=== PATIENT | male | born 1980 | race Caucasian/White ===

== ENCOUNTER 2017-06-28 16:42 | Emergency (ER) | payer OTHER, SELFPAY ==
[2017-06-28 16:43] VITALS: BP 160/129; PULSE 91; RESP 18; TEMP 36.8; O2SAT 95; BMI 34.9
--- NOTE | 2017-06-28 17:34 | ED.VISSUMM ---
- ER Visit Summary Date of Service: 06/28/17 Chief Complaint: Right chest pain while bench pressing 225 pounds. History of Present Illness: The patient is a 36 M who was bench pressing and experienced severe tearing right-sided chest pain associated with nausea and vomiting. He states the pain has subsided markedly. He believes he tore his pectoralis muscle. He has no other complaints. Physical Examination: No signs are marked for an elevated blood pressure of 160/129. He has a defect noted superior lateral portion of the right pectoralis muscle. There is fullness of the chest inferior. Heart is regular without murmur, gallop or rub. S1 and S2 are normal. Lungs are clear to auscultation with good movement of air bilaterally. Axillary, median, radial and ulnar function intact. Test Results: No tests are indicated or needed Emergency Department Course and Treatment: Patient was told he has a tear of his pectoralis muscle. He informed me that his staff trainer recommended Dr. Zander Lucero for follow-up. Treatment Plan: Ice 2030 minutes a time 6 day times a day and either ibuprofen or Aleve for his discomfort. He declined any pain medicine or anything stronger. Disposition: Discharge to home with orthopedic follow-up to discuss treatment options Impression: Right pectoralis tear, insertion This note was generated with [employer] dictation software. It may contain incorrect words, spelling, and punctuation that were not noted in review of the chart prior to signing ED Disposition - Plan for ED Patient: Disposition: Home or Assisted Living Chief Complaint: Chest Other Instructions: ED Strain Chest Wall Referrals: NOT,DEFINED [NON-STAFF] - Zander Lucero DO [STAFF PHYSICIAN] - 5-7 Days Additional Instructions: Apply ice 6-8 times a day for 2030 minutes for the next 3-5 days. Take either 4 Advil every 8 hours or 2 Aleve every 12 hours for discomfort.
--- NOTE | 2017-06-28 17:39 | ED.DCSUM_ITS ---
- ER Visit Summary Date of Service: 06/28/17 Chief Complaint: Right chest pain while bench pressing 225 pounds. History of Present Illness: The patient is a 36 M who was bench pressing and experienced severe tearing right-sided chest pain associated with nausea and vomiting. He states the pain has subsided markedly. He believes he tore his pectoralis muscle. He has no other complaints. Physical Examination: No signs are marked for an elevated blood pressure of 160/ 129. He has a defect noted superior lateral portion of the right pectoralis muscle. There is fullness of the chest inferior. Heart is regular without murmur, gallop or rub. S1 and S2 are normal. Lungs are clear to auscultation with good movement of air bilaterally. Axillary, median, radial and ulnar function intact. Test Results: No tests are indicated or needed Emergency Department Course and Treatment: Patient was told he has a tear of his pectoralis muscle. He informed me that his rehab trainer recommended Dr. Zander Lucero for follow-up. Treatment Plan: Ice 2030 minutes a time 6 day times a day and either ibuprofen or Aleve for his discomfort. He declined any pain medicine or anything stronger. Disposition: Discharge to home with orthopedic follow-up to discuss treatment options Impression: Right pectoralis tear, insertion This note was generated with [employer] dictation software. It may contain incorrect words, spelling, and punctuation that were not noted in review of the chart prior to signing ED Disposition - Plan for ED Patient: Disposition: Home or Assisted Living Chief Complaint: Chest Other Instructions: ED Strain Chest Wall Referrals: NOT,DEFINED [NON-STAFF] - Zander Lucero DO [STAFF PHYSICIAN] - 5-7 Days Additional Instructions: Apply ice 6-8 times a day for 2030 minutes for the next 3-5 days. Take either 4 Advil every 8 hours or 2 Aleve every 12 hours for discomfort.
== END 2017-06-28 17:47 | disposition home or self-care (01) ==
PROVIDERS: Emergency Provider Emergency Medicine
DX: S29.011A Strain of muscle and tendon of front wall of thorax, initial encounter (principal); X58.XXXA Exposure to other specified factors, initial encounter; Y93.B3 Activity, free weights; Y92.89 Other specified places as the place of occurrence of the external cause; Y99.8 Other external cause status
CPT/HCPCS: 99283

== ENCOUNTER → 2017-06-30 08:13 | Outpatient (CLI) | payer OTHER, SELFPAY ==
--- NOTE | 2017-06-30 08:15 | RAD_ITS ---
STUDY: X-RAY CHEST REASON FOR EXAM: Male, 36 years old. Chest pain following injury. TECHNIQUE: Single AP portable view of the chest. COMPARISON: Comparison is made with prior study dated June 08, 2016. FINDINGS: The lungs are clear and expanded. There is no demonstrated pleural abnormality. Normal size heart. Normal mediastinum and odette. Normal visualized pulmonary arteries. Normal visualized aortic arch and descending thoracic aorta. Normal visualized thoracic spine. Normal visualized ribs, clavicles, and shoulders. There is no demonstrated abnormality of the visualized soft tissue structures of the upper abdomen. RAD/Chest 1 View IMPRESSION: Normal x-ray examination of the chest. Electronically Signed: Stevan Anderson MD at 13:38 EST Tel [phone], Service support ,
== END ==
PROVIDERS: Visit Provider Orthopaedic Surgery
DX: S29.011A Strain of muscle and tendon of front wall of thorax, initial encounter (principal)
CPT/HCPCS: 71045

== ENCOUNTER → 2017-07-06 06:35 | Outpatient (CLI) | payer OTHER, SELFPAY ==
--- NOTE | 2017-07-06 07:00 | MRI_ITS ---
STUDY: MRI RIGHT SHOULDER REASON FOR EXAM: Shoulder pain, limited range of motion, swelling in right pectoralis area from lifting injury 06/28/2017. TECHNIQUE: Standardized fat and water weighted pulse sequences were obtained in all 3 orthogonal planes. COMPARISON: None. FINDINGS: There is mild supraspinatus tendinosis (T2 coronal image images 16, 17) without discrete tendon tear. Normal infraspinatus tendon. Normal subscapularis tendon. Normal teres minor tendon. Normal supraspinatus muscle. Normal infraspinatus muscle. Normal subscapularis muscle. Normal teres minor muscle. Normal glenohumeral articulation. There is mild cystic change of the greater tuberosity. Normal biceps labral complex. Normal intracapsular long biceps tendon. Normal labrum. Normal capsulo- ligamentous complex. Normal acromioclavicular articulation. There is a Type II morphology (curved), with a neutral orientation. There is no subacromial-subdeltoid bursal fluid. Normal visualized coracohumeral and coracoacromial ligaments. Normal deltoid muscle. Normal trapezius muscle. There is discontinuity of the pectoralis major tendon approximately 2.8 cm proximal to the humeral insertion (proton-density axial image 25) with fluid/hemorrhage surrounding the retracted tendon near the pectoralis major musculotendinous junction (proton-density axial images 18-23). MRI/Upper Ext Joint Only(Routine) IMPRESSION: Tear of the pectoralis major tendon. Mild supraspinatus tendinosis. Electronically Signed: Enoch Suazo MD at 8:59 EST Tel , Service support ,
== END ==
PROVIDERS: Visit Provider Orthopaedic Surgery
DX: S29.011A Strain of muscle and tendon of front wall of thorax, initial encounter (principal); X58.XXXA Exposure to other specified factors, initial encounter
CPT/HCPCS: 73221

== ENCOUNTER → 2017-07-07 06:23 | Outpatient (CLI) | payer OTHER, SELFPAY ==
--- NOTE | 2017-07-07 07:00 | MRI_ITS ---
STUDY: MR CHEST WITHOUT CONTRAST (ATTENTION RIGHT PECTORALIS MAJOR) REASON FOR EXAM: Anterior right chest swelling after lifting injury 06/28/2017. TECHNIQUE: Standardized fat and water weighted pulse sequences were obtained in all 3 orthogonal planes. COMPARISON: MRI of the right shoulder 07/06/2017. FINDINGS: There is discontinuity of the right pectoralis major tendon approximately 2.7 cm proximal to the humeral insertion (T2 axial series 9 image 10). There is fluid/hemorrhage at the musculotendinous junctions of the sternal and clavicular heads of the right pectoralis major (inversion recovery sagittal images 6-8). MRI/Chest without Contrast IMPRESSION: Tear of the right pectoralis major tendon with fluid/hemorrhage at the musculotendinous junction. Electronically Signed: Enoch Suazo MD at 9:28 EST Tel , Service support ,
== END ==
PROVIDERS: Visit Provider Orthopaedic Surgery
DX: S29.011A Strain of muscle and tendon of front wall of thorax, initial encounter (principal)
CPT/HCPCS: 71550

== ENCOUNTER 2017-07-16 05:39 | Day surgery (SDC) | payer OTHER, SELFPAY ==
[2017-07-16 06:13] VITALS: BP 137/87; PULSE 90; RESP 16; TEMP 36.4; O2SAT 97; BMI 34.9
--- NOTE | 2017-07-16 07:22 | OP.PN_ITS ---
Immediate Post-Op Note Date of Procedure: 07/16/17 Primary Surgeon/Physician: Zander Lucero DO director of financial planning: Lennie Corbett Pre-Operative Diagnosis: right acute pec tear Post-Operative Diagnosis: same as above Surgery/Procedure Performed:: right open pec repair Description of Surgical Findings:: see dictation Estimated Blood Loss: 50 Specimen's removed: none Type of Anesthesia:: General ASA Class: ASA1 Normal Healthy Patient - Admit VTE Documentation VTE Present on Admission: No VTE Mechan Device Prophylaxis: SCD's, Knee High OTILIA Hose VTE Pharm Prophylaxis ordered?: No Reason prophylaxis not ordered:: Treatment Not Indicated
[2017-07-16] MEDS: Cefazolin 2 GM in 0.9% Normal Saline 100 ML IV (07:35)
[2017-07-16] MEDS: Bupivacaine Mpf 0.5% 30 ML VIAL (09:05)
--- NOTE | 2017-07-16 09:23 | PCM.OPRPT ---
Report of Operation Date of Procedure: 07/16/17 Pre-Operative Diagnosis: right acute pec tear Post-Operative Diagnosis: same as above Surgery/Procedure Performed:: right open pec repair Description of Surgical Findings:: 36-year-old male with an acute right pectoralis major rupture. 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 Patient had an MRI that showed him to have an tear at the musculotendinous junction. It appeared that it was a complete tea of the sternal-total and clavicular heads. Patient was counseled consented for a primary repair if able versus possible augmentation with allograft if needed. Patient was met in the holding area where the right upper extremity was marked and identified by the with surgeon. Patient was taken the operating room in satisfactory condition with somewhat to place to identify patient operative procedure and limb. Patient received 2 g Ancef. He underwent a successful intubation. Patient was then placed into a gentle beachchair position of approximately 45? heads up with his head in a fine neutral position. He was then prepped and draped in the usual fashion. The right upper extremity was placed into the [place] [facility] arm roth. Patient had modified deltopectoral approach moving just distal to the coracoid with a curvilinear approach along the deltoid anteriorly. Patient underwent sharp dissection down to soft tissues and Bovie cautery 20 bleeding. At that point time a standard deltopectoral approach was undertaken and he can be seen that the clavicular head was intact. At that point time we moved medial inferior of the clavicle found the typical seroma at the inferior junction and were able to at that time began our mobilization of the tendon. It can be seen that the patient had again torn at the musculotendinous junction. A portion of his muscle was actually still attached to the tendon which was macerated as well. It did not seem viable in order to make an attempted to primary repair into the tendon and it was gently debrided. At that point time the retracted sternocostal head was mobilized in a circumferential pattern being cognizant to not injure the neurovascular structures. We able to mobilize the tendon relatively well based on the acuity of the injury. Traction sutures were placed and I felt that by moving underneath the the clavicular head that we will be able to mobilize accordingly down to a primary repair. At that point time we mobilized the lateral edge of the intertubercular groove identified the biceps which was then indicative of the insertion site of the pectoralis. We prepared the lateral edge of the intertubercular groove and humerus using standard technique with a Rios elevator to mobilize the tissues. We then placed 3 staggered holes in anticipation of placing pack buttons for our primary fixation again on the lateral aspect of the humerus. We then turned our attention back to mobilization of the tendon. The tendon was maintained longitudinal traction and we placed one fiber tape and a running Krak?w technique being cognizant to an incorporate the inferior aspect of the remnant tendon using standard technique. We then placed a second #5 FiberWire Krak?w again through the mid segment of the sternal head and then finally a third running Krak?w across the superior border of the sternal costal head. Traction sutures were then able to be removed in anticipation of performing a repair. We pulled the pectoralis underneath the clavicular head and moving towards the insertion site. Then using gentle internal rotation of the arm in abduction were able to mobilize the tendon down to its normal anatomic surgery site and tied using standard technique. Upon completion the biceps tendon was covered the tendon moved with gentle internal/external rotation in continuity. There was still mild tension on the tendon secondary to degree of retraction. However primary repair was able to be accomplished. At that point time we copiously irrigated the area and then reapproximated the fascial tissue on the near the original incision site with a running Krak?w 0 Vicryl. We reapproximated the sternal and clavicular heads again with running Krak?w technique as well. The subcuticular tissue were closed with 2-0 Vicryl, running subicular Monocryl and application of Dermabond. Patient was dressed in the usual fashion with an UltraSling application. I was scrubbed and available time during our procedure. We had no drains or complications. Implants included 3 pack buttons from [employer] and the associated 2 strands of #5 FiberWire, and 1 #2 fiber tape. web applications developer: Lennie Corbett Type of Anesthesia:: General Specimen's removed: none Estimated Blood Loss (mL): 50 Grafts/Implants Used: 3 [employer] pec buttons, 2 #5 FiberWire and 1 #2 fiber tape - Complications None - Admit VTE Documentation VTE Present on Admission: No VTE Mechan Device Prophylaxis: SCD's, Knee High OTILIA Hose VTE Pharm Prophylaxis ordered?: No Reason prophylaxis not ordered:: Treatment Not Indicated
--- NOTE | 2017-07-16 09:31 | PCM.DC.ORTHO ---
Discharge Activity: Return to Normal Activity, May not drive while taking narcotic pain medications., May Shower, - - Sling 24 7 except to shower. Keep arm at side during shower. Limited external rotation and abduction of the arm. Sling 24 7. Recommend button-down shirts. May flex and extend elbow ad keven. May shower in (days): 2 May resume sexual activity in: 8 weeks Ice area for (Minutes): 20 Weight Bearing Status: No weight bearing Lifting Restrictions: No lifting Call your doctor if your incision/area has: Continuous Slow Oozing, Sudden Increased Bleeding, Increased Pain/ Swelling, Increased Redness, Foul Smelling Discharge, Swelling at the incision site Call your doctor if you observe: Fever of 101 or Higher, Coldness, Increased Pain, Numbness or Tingling, Change in Color, Inability to urinate, Inability to have a bowel movement, Using more than one pad per hour, Shortness of breath, Dizziness, Fainting spells, Swelling in the ankles, Chest pain, Prolonged hiccoughing, Increased palpitations (irregular heartbeat), Calf discomfort, Uncontrolled pain Suture Line Care: Avoid Pulling/Pushing Change Dressing in (Days):: 2 Remove Dressing in (days):: 2 Cleanse incision/area with: Soap & Water Additional Dressing/Incision Instructions:: Change dressing at time of initial shower. Do not submerge wound. Allergies/Adverse Reactions: Allergies No Known Allergies Allergy (Verified 07/15/17 10:47) Medications to take at Discharge diphenhydramine 25 mg tablet 25 mg PO Q4H PRN #30 tab 07/14/17 prednisone 50 mg tablet 50 mg PO QDAY PRN 5 Days #5 tab 07/14/17 Cephalexin [Keflex] 500 mg PO Q12 #10 cap 07/16/17 Diazepam [Valium] 5 mg PO Q8H PRN PRN #20 tablet 07/16/17 Docusate Sodium [Colace] 100 mg PO BID PRN PRN #10 cap 07/16/17 Oxycodone HCl/Acetaminophen [Percocet 5/325] 1 - 2 tablet PO Q4H PRN PRN #60 tablet 07/16/17 ProMETHAzine [Phenergan] 25 mg PO Q4H PRN PRN #10 tab 07/16/17 The following prescriptions were given: Oxycodone HCl/Acetaminophen [Percocet 5/325] 1 - 2 tablet PO Q4H PRN PRN #60 tablet PRN Reason: Pain ProMETHAzine [Phenergan] 25 mg PO Q4H PRN PRN #10 tab PRN Reason: Nausea Diazepam [Valium] 5 mg PO Q8H PRN PRN #20 tablet PRN Reason: Spasms Cephalexin [Keflex] 500 mg PO Q12 #10 cap Docusate Sodium [Colace] 100 mg PO BID PRN PRN #10 cap PRN Reason: Constipation Primary Care Physician: Care Physician,No Primary [Primary Care Provider] - Please Follow Up With: Zander Lucero DO When: call [facility] for appt for 2 weeks Proposed Discharge Date: 07/16/17
[2017-07-16 09:49] VITALS: BP 123/72; BP 137/87; PULSE 77; RESP 18; TEMP 36.3; O2SAT 100
[2017-07-16 10:00] VITALS: BP 115/76; BP 137/87; PULSE 81; RESP 18; O2SAT 100
[2017-07-16 10:15] VITALS: BP 120/87; BP 137/87; PULSE 85; RESP 18; O2SAT 100
[2017-07-16 10:19] VITALS: BP 115/93; BP 137/87; PULSE 79; RESP 18; TEMP 36.1; O2SAT 98
[2017-07-16 11:35] VITALS: BP 137/87
== END 2017-07-16 11:40 | disposition home or self-care (01) ==
LOC: SDC 05:40 → AC 05:41
PROVIDERS: Visit Provider Orthopaedic Surgery
PROC: (CPT 24341; principal; 2017-07-16 07:00)
DX: S29.011A Strain of muscle and tendon of front wall of thorax, initial encounter (principal); Z79.52 Long term (current) use of systemic steroids; X58.XXXA Exposure to other specified factors, initial encounter; Y93.89 Activity, other specified; Y92.89 Other specified places as the place of occurrence of the external cause; Y99.8 Other external cause status
CPT/HCPCS: 24341; J7120; J2405

== ENCOUNTER 2017-09-20 17:30 | Outpatient (RCR) | payer OTHER, SELFPAY ==
--- NOTE | 2018-02-08 13:01 | HP.PT.NRP ---
HP - Discharge Summary (1) - Patient Information MANUEL OSHEA was seen in my office for initial evaluation on 08/18/17. The following Plan of Care was established for this patient: Initial Frequency: 2-3x /Week Initial Duration: 12 weeks - Anticipated Interventions Patient/Client Instruction: Educate patient on: Condition, Plan of Care, Risk Factors, Benefits of Fitness Program For the Purpose of:: To improve safety, To improve health and function, To foster healthy habits, To improve decision making, To facilitate caregiver knowledge, To improve self management, To prevent re-injury, To improve ability to perform tasks related to life management, To improve tolerance to ADL's Therapeutic Exercise to Include: Strength training, Power training, Endurance training, Postural training, Flexibilty training, Passive ROM, Active ROM, Scapular Strength/Stabilization For the Purpose of:: To decrease pain, To increase ROM, To improve nutrient delivery to tissue, To increase oxygenation perfusion, To improve muscle performance and motor function, To improve ability to perform ADL's, To improve health of tissue, To decrease soft tissue restriction, To increase flexibility/ROM Manual Therapy Techniques to Include: Petrissage, Trigger point massage, Passive ROM, Soft tissue mobilization For the Purpose of:: To decrease pain, To increase ROM, To improve nutrient delivery to tissue, To increase oxygenation perfusion, To improve health of tissue, To decrease soft tissue restriction, To increase flexibility/ROM IF ES: Yes Cryotherapy (ice pack, ice massage): Yes Thermo therapy (hot pack): Yes For the Purpose of:: To decrease pain, To decrease swelling/inflammation, To increase ROM This patient was last seen in our office 09/20/17. Pertinent comments regarding their Physical therapy will appear below: Pt. was seen for 3 visits after his R pectoralis repair. Pt. was progressing as expected. He stopped coming to PT and has not been seen in ~5 months. He will be DC from PT at this point in time. At this point I will be discontinuing this patient from physical therapy. I would be happy to see this patient again in the future if found appropriate by the physician. Thank you! Garcia Coy
== END 2017-09-20 19:00 | disposition home or self-care (01) ==
LOC: PT 17:30
PROVIDERS: Visit Provider Orthopaedic Surgery
DX: Z98.890 Other specified postprocedural states (principal)
CPT/HCPCS: 97110; 97161

== ENCOUNTER 2018-02-09 11:20 | Emergency (ER) | payer OTHER, SELFPAY ==
[2018-02-09 11:21] VITALS: BP 155/100; PULSE 104; RESP 18; TEMP 36.6; O2SAT 98; BMI 35.9
--- NOTE | 2018-02-09 12:38 | CT_ITS ---
STUDY: CTA OF THE BRAIN, WITHOUT AND WITH IV CONTRAST. REASON FOR EXAM: Male, 37 years old. Headache. RADIATION DOSAGE (If Supplied By Facility): CTDIvol = ( 29.32 ) mGy, DLP = ( 1190.63 ) mGycm TECHNIQUE: Noncontrast transaxial CT acquisition through the head. This was followed by injection of Isovue 370, 100 mL IV contrast, with thin slice transaxial CT imaging of the head, coronal and sagittal MIP, and 3-D volume rendered reformatted images saved to the PACS archive. Individualized dose optimization techniques were used for this CT. COMPARISON: None. FINDINGS: NONCONTRAST CT HEAD: Normal brain. Artificial osseous structures normal. Prominent mucoperiosteal thickening and mucous retention cyst at the base of the maxillary sinuses, involving the sphenoid sinuses, and throughout the ethmoid sinuses. Mastoid air cells and middle ear cavities clear. A cranial soft tissues including orbital contents appear normal. CTA HEAD: Vertebral arteries: Normal. Basilar artery: Normal basilar artery and major cerebellopontine divisions. Normal basilar tip. Posterior cerebral arteries: Normal. Transcranial internal carotid arteries: Normal. Communicating arteries: Normal. Bilateral anterior cerebral arteries: Normal. Bilateral middle cerebral arteries: Normal. The dural venous sinuses and major venous tributaries enhancement arborizes normally. CT/CTA Head W/WO Contrast IMPRESSION: Normal [place] without a demonstrated aneurysm or hemodynamically significant stenosis. Diffuse chronic paranasal sinus disease. Electronically Signed: Ky Lima, at 13:49 EDT Tel , Service support ,
--- NOTE | 2018-02-09 12:39 | ED.VISSUMM ---
- ER Visit Summary Date of Service: 02/09/18 Chief Complaint: Headache History of Present Illness: The patient is a 37 M past medical history. Patient states on Wednesday he got a headache which started out behind his right eye but now is diffuse. He gets a headache about once every 3-4 months. He has never been diagnosed with any specific types of headaches. He is never been worked up. He denies ever having any brain imaging. There is no family history of intracranial bleeds or brain aneurysms. His sister did have a benign brain tumor. He denies any neurological symptoms. He has had some intermittent nausea. He is on no blood thinners. He denies any fever. No significant sinus congestion. He had no head trauma. He went to urgent care and they transferred in the ER to be evaluated. Physical Examination: Young male no acute distress. Initial blood pressure 135/100. Afebrile. Seated in a darkened room. HEENT exam is round reactive light. Positive photophobia. Extra motions are intact. No facial droop. Normal speech. TMs not visualized due to wax bilaterally. No frontal or maxillary sinus tenderness. No purulent discharge. Posterior pharynx normal. No signs of trauma to his face or scalp. Neck nontender. No lymphadenopathy. No meningismus. Can easily touch his chin to his chest. Lungs clear to auscultation bilaterally. Heart regular rhythm no murmur. Abdomen soft nontender. Patient is moving all 4 extremities. They are neurovascularly intact. He has 5 out of 5 manager cost strength. Dorsi and plantar flexion is intact. Neurologically is awake and alert with no focal motor or sensory deficits. NIH score. Fingertip to nose and heel to cid are both within normal limits. Test Results: CTA of the brain was obtained. Shows no acute abnormality. No bleed. No aneurysm. No mass. Read by the radiologist and reviewed by me. Emergency Department Course and Treatment: Due to the intensity patient's headache I did feel that he needed imaging. He was also treated with IV Toradol, fluids, Benadryl and Zofran. Repeat exam patient is doing well. Headache is resolving. He feels better. His neurologic exam remains normal. Is no focal deficits. Treatment Plan: Discharged home. Follow-up with a local primary care physician. Disposition: Discharge Impression: Acute cephalgia of uncertain etiology This note was generated with [employer] dictation software. It may contain incorrect words, spelling, and punctuation that were not noted in review of the chart prior to signing ED Disposition - Plan for ED Patient: Chief Complaint: Headache Referrals: Care Physician,No Primary [Primary Care Provider] -
--- NOTE | 2018-02-09 12:42 | ED.DCSUM_ITS ---
- ER Visit Summary Date of Service: 02/09/18 Chief Complaint: Headache History of Present Illness: The patient is a 37 M past medical history. Patient states on Wednesday he got a headache which started out behind his right eye but now is diffuse. He gets a headache about once every 3-4 months. He has never been diagnosed with any specific types of headaches. He is never been worked up. He denies ever having any brain imaging. There is no family history of intracranial bleeds or brain aneurysms. His sister did have a benign brain tumor. He denies any neurological symptoms. He has had some intermittent nausea. He is on no blood thinners. He denies any fever. No significant sinus congestion. He had no head trauma. He went to urgent care and they transferred in the ER to be evaluated. Physical Examination: Young male no acute distress. Initial blood pressure 135/100. Afebrile. Seated in a darkened room. HEENT exam is round reactive light. Positive photophobia. Extra motions are intact. No facial droop. Normal speech. TMs not visualized due to wax bilaterally. No frontal or maxillary sinus tenderness. No purulent discharge. Posterior pharynx normal. No signs of trauma to his face or scalp. Neck nontender. No lymphadenopathy. No meningismus. Can easily touch his chin to his chest. Lungs clear to auscultation bilaterally. Heart regular rhythm no murmur. Abdomen soft nontender. Patient is moving all 4 extremities. They are neurovascularly intact. 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 Dorsi and plantar flexion is intact. Neurologically is awake and alert with no focal motor or sensory deficits. NIH score. Fingertip to nose and heel to cid are both within normal limits. Test Results: CTA of the brain was obtained. Shows no acute abnormality. No bleed. No aneurysm. No mass. Read by the radiologist and reviewed by me. Emergency Department Course and Treatment: Due to the intensity patient's headache I did feel that he needed imaging. He was also treated with IV Toradol, fluids, Benadryl and Zofran. Repeat exam patient is doing well. Headache is resolving. He feels better. His neurologic exam remains normal. Is no focal deficits. Treatment Plan: Discharged home. Follow-up with a local primary care physician. Disposition: Discharge Impression: Acute cephalgia of uncertain etiology This note was generated with [employer] dictation software. It may contain incorrect words, spelling, and punctuation that were not noted in review of the chart prior to signing ED Disposition - Plan for ED Patient: Chief Complaint: Headache Referrals: Care Physician,No Primary [Primary Care Provider] -
[2018-02-09] MEDS: Ketorolac 30 MG/ML Syringe IV (13:16)
[2018-02-09] MEDS: Ondansetron 4 MG/2 ML Vial IV (13:16)
[2018-02-09] MEDS: DiphenhydrAMINE 50 MG/ML Syringe 25 MG IV (13:16)
[2018-02-09] MEDS: 0.9% Normal Saline 1,000 ML 1000 ML IV (13:17)
--- NOTE | 2018-02-09 14:40 | ED.DEP ---
ED Disposition - Plan for ED Patient: Disposition: Home or Assisted Living Chief Complaint: Headache Instructions: ED Cephalgia Unspecified Referrals: Efren Parker MD [STAFF PHYSICIAN] - 1 Week if not improving Additional Instructions: The CAT scan of your brain was normal. No signs of any masses, bleeding or brain aneurysms. Tylenol and/or Motrin for pain
[2018-02-09 15:03] VITALS: BP 130/78; PULSE 82; RESP 18; O2SAT 99
== END 2018-02-09 15:05 | disposition home or self-care (01) ==
PROVIDERS: Emergency Provider Emergency Medicine
DX: R51 Headache (principal)
CPT/HCPCS: 70496; 96361; 96374; 96375; 99284; J7030; Q9967; A4216; J2405

== ENCOUNTER → 2018-02-25 09:57 | Outpatient (CLI) | payer OTHER, SELFPAY ==
[2018-02-25 10:00] LABS: Bacteria 0 SEEN /hpf (None Seen); Mucous, Urine 0 SEEN /hpf (<or=2+); Red Blood Cells-Urine 0 SEEN /hpf (0-5); Squamous Epithelial Cells - UA 0 SEEN /hpf (0-5); White Blood Cells 0 SEEN /hpf (0-5)
[2018-02-25 12:04] LABS: Color, Urine Yellow (Yellow); Glucose, Dipstick Normal (Normal); Ketone-Dipstick Negative (Negative); Leukocyte Esterase-Dipstick Negative /ul (Negative); Nitrite-Dipstick Negative (Negative); Occult Blood-Urine Negative /ul (Negative); Protein-Dipstick Negative (Negative); Urine Bilirubin Dipstick Negative (Negative); Urine Clarity Clear (Clear); Urine Urobilinogen Normal (Normal)
[2018-02-25 12:14] LABS: Absolute Lymphocyte Count 1.43 X10^3/ul (0.83-4.51); Absolute Neutrophil Count 3.7 X10^3/uL (2.0-7.7); Basophil# 0.04 X10^3/uL; Basophil% 0.7 % (0-1); Eosinophil# 0.26 X10^3/uL; Eosinophils% 4.4 % (0-5); Hematocrit 45.2 % (40-54); Hemoglobin 15.4 g/dl (13.0-16.5); Lymphocyte # 1.43 X10^3/ul (4.0); Lymphocyte % 24.4 % (19-41); Mean Corp Hgb Conc 34.1 g/gl (32-36); Mean Corpuscular Volume 88.1 fL (80-94); Mean Platelet Vol. 9.8 fl (6.2-12.0); Monocyte# 0.45 X10^3/uL; Monocyte% 7.7 % (0-10); Neutrophil # 3.66 X10^3/uL (2.7-7.7); Neutrophil % 62.5 % (47-70); Platelet Count 262 K/mm3 (150-450); RBC Distribution Width CV 12.8 % (11.6-14.6); RBC Distribution Width SD 40.7 fl (35.1-43.9); Red Blood Count 5.13 M/mm3 (4.6-6.2); White Blood Count 5.9 K/mm3 (4.4-11.0)
[2018-02-25 12:26] LABS: POSITIVE COUNT NO; POSITIVE DIFFERENTIAL NO; POSITIVE MORPHOLOGY NO
[2018-02-25 12:50] LABS: ALB/GLOB Ratio 0.9 RATIO (0.9-2.4); AST(SGOT) 31 U/L (15-37); Alanine Aminotransfer ALT/SGPT 62 U/L (16-61); Albumin, Serum 3.7 g/dL (3.2-5.0); Alkaline Phosphatase 97 U/L (45-117); Anion Gap 6 (5-15); BUN 13 mg/dL (7-18); BUN/Creat Ratio 11.8 RATIO (10-20); Calcium,Total 8.5 mg/dL (8.5-10.1); Chloride 106 mmol/L (98-107); Cholesterol 202 mg/dL (200); EST Glomerular Filtration Rate 81 mL/min (>60); Est Glom Filt Rate - Afr Amer 98 mL/min (>60); Glucose 96 mg/dL (74-106); High Density Lipoprotein 28 mg/dL; Potassium 4.5 mmol/L (3.5-5.1); Protein, Total 7.7 g/dL (6.4-8.2); Sodium Level 140 mmol/L (136-145); Thyroid Stim Hormone (TSH) 1.46 uIU/mL (0.358-3.74); Triglycerides 337 mg/dL; Very Low Density Lipoprotein 67 mg/dL (5-40)
== END ==
PROVIDERS: Family Provider Family Medicine; PCP Family Medicine; Visit Provider Family Medicine
DX: I10 Essential (primary) hypertension (principal)
CPT/HCPCS: 36415; 80053; 80061; 81001; 84443; 85025

== ENCOUNTER 2018-03-02 03:50 | Observation (INO) | payer OTHER, SELFPAY ==
[2018-03-02] VITALS (16 sets, daily range): BP systolic 122–159; BP diastolic 81–107; PULSE 76–104; RESP 12–20; TEMP 36.7–37.1; O2SAT 93–97; BMI 35.9; BMI 35.7
--- NOTE | 2018-03-02 03:52 | ED.RN ---
CALLED FOR EKG PER RN REQUEST, PULLED OLD EKGS FOR
--- NOTE | 2018-03-02 04:08 | EKG12_ITS ---
Test Reason : CHEST PAIN Blood Pressure : / mmHG Vent. Rate : 098 BPM Atrial Rate : 098 BPM P-R Int : 162 ms QRS Dur : 088 ms QT Int : 350 ms P-R-T Axes : 049 040 -01 degrees QTc Int : 446 ms Normal sinus rhythm Inferior infarct , age undetermined Abnormal ECG Confirmed by BECKY STORM, RYAN ([id number]), scientific publications editor CALEB SAMUEL ([id number]) on 03/09/2018 1:53:54 PM Referred By: BOO Confirmed By:RYAN PENA MD
--- NOTE | 2018-03-02 04:08 | RAD_ITS ---
STUDY: X-RAY CHEST REASON FOR EXAM: Male, 37 years old. Chest pain. TECHNIQUE: PA and lateral chest. COMPARISON: June 30, 2017 FINDINGS: The lungs are clear and expanded. There is no demonstrated pleural abnormality. Normal size heart. Normal mediastinum and odette. Normal visualized pulmonary arteries. Normal visualized aortic arch and descending thoracic aorta. Normal visualized thoracic spine. Normal visualized ribs, clavicles, and shoulders. There is no demonstrated abnormality of the visualized soft tissue structures of the upper abdomen. RAD/Chest PA and Lateral IMPRESSION: No acute cardiopulmonary disease. Electronically Signed: Kwaku Pino MD at 4:31 EDT , Service support ,
--- NOTE | 2018-03-02 04:09 | ED.VISSUMM ---
- ER Visit Summary Date of Service: 03/02/18 Chief Complaint: Chest pain History of Present Illness: The patient is a 37 M presents with 2 hours of chest pressure. Patient states he can sleep and woke up with substernal chest pressure rated an 8 out of 10. He had associated diaphoresis and nausea. His hands felt tingly at the time but that has resolved. He got up and went to the bathroom and felt like passing out. He has had episodes of shortness of breath, and he also felt lightheaded and dizzy when coming into the emergency department. Symptoms are worse with exertion. He is currently rating his discomfort a 1 or 2 out of 10. He had similar chest pain a year ago but without the diaphoresis, at which time he had an unremarkable workup. He has history of hypertension, hypercholesterolemia and family history of hypertension, but no history of personal history of diabetes, coronary artery disease, venous thromboembolism, and patient is not a smoker. He has been on verapamil for 5 days. Physical Examination: Vital signs: afebrile, hemodynamically stable, no hypoxia on room air General: well nourished, well developed, in no distress Skin: warm, diaphoresis, no rash, no pallor HEENT: normocephalic and atraumatic; PERRL, EOMI, moist mucous membranes Cardiovascular: Tachycardic rate and rhythm without murmurs, no peripheral edema, 2+ pulses all distal extremities Respiratory: No increased work of breathing, lungs are clear to auscultation bilaterally, no rales, rhonchi or wheezing Abdominal: Abdomen is soft, nontender with normoactive bowel sounds, no guarding or rebound, no masses MSK: Moves all extremities, no deformities, normal strength Neuro: Awake and alert, oriented ?4. No facial droop, sensation and motor function intact and symmetric Test Results: Abnormal Lab Results 03/02/18 03/02/18 03/02/18 03:52 03:52 03:52 WBC 6.3 RBC 5.14 Hgb 15.4 Hct 45.6 MCV 88.7 MCH 30.0 MCHC 33.8 RDW 12.9 RDW Differential 41.6 Plt Count 258 MPV 9.4 Immature Gran % (Auto) 0.200 Neut % (Auto) 50.8 Lymph % (Auto) 36.2 [place] % (Auto) 8.2 Eos % (Auto) 4.1 Baso % (Auto) 0.5 Absolute Neuts (auto) 3.2 Absolute Lymphs (auto) 2.29 Total Counted Not Reportable PT 12.7 INR 1.0 APTT 29.1 D-Dimer Quant (PE/DVT) 0.43 Sodium 143 Potassium 4.1 Chloride 109 H Carbon Dioxide 25.0 Anion Gap 9 BUN 13 Creatinine 1.06 Estim Creat Clear Calc 119.42 Est GFR (MDRD) Af Amer 102 Est GFR (MDRD) Non-Af 84 BUN/Creatinine Ratio 12.3 Glucose 91 Calcium 8.7 Troponin I < 0.015 TSH 5.38 H Clinical Impression(s) from Imaging Studies Chest X-Ray 03/02/18 04:08 IMPRESSION: No acute cardiopulmonary disease. Electronically Signed: Kwaku Pino MD at 4:31 EDT , Service support , Medications Given Discontinued Medications Aspirin (Aspirin, Baby) 324 mg PO X1 STA Stop: 03/02/18 04:09 Last Admin: 03/02/18 04:29 Dose: 324 mg Sodium Chloride () 1,000 mls @ 1,000 mls/hr IV .Q1H ONE Stop: 03/02/18 05:07 Last Admin: 03/02/18 04:29 Dose: 1,000 mls/hr Nitroglycerin (Nitrostat) 0.4 mg SUBLINGUAL Q5M LETICIA Stop: 03/02/18 04:26 Last Admin: 03/02/18 04:55 Dose: Not Given Admin: 03/02/18 04:41 Dose: 0.4 mg Admin: 03/02/18 04:31 Dose: 0.4 mg Emergency Department Course and Treatment: Patient presents with substernal chest pressure and episodic shortness of breath with tachycardia and diaphoresis. Chest pain workup was performed, including d-dimer to evaluate for possible PE, given the feeling of near syncope and tachycardia. Patient was given aspirin and nitro. Patient had resolution of his chest discomfort after 2 nitro. EKG showed a sinus rhythm without ischemia or ectopy. Troponin negative. No electrolyte derangements. On reevaluation, patient was no longer diaphoretic, skin was warm, pink and dry, and he was pain-free. Because of his risk factors of hypertension, hypercholesterolemia and obesity along with his concerning presentation with substernal chest discomfort and diaphoresis, he is moderate risk for 30-day MACE with a heart score of 4. Patient will be admitted observation status for further chest pain workup. He was discussed with the hospitalist for admission. Treatment Plan: [] Disposition: [] Impression: Acute chest pain, concern for ACS This note was generated with [employer] dictation software. It may contain incorrect words, spelling, and punctuation that were not noted in review of the chart prior to signing ED Disposition - Plan for ED Patient: Chief Complaint: Chest Pain Referrals: Leonel Garcia MD [Primary Care Provider] -
--- NOTE | 2018-03-02 04:12 | ED.DCSUM_ITS ---
- ER Visit Summary Date of Service: 03/02/18 Chief Complaint: Chest pain History of Present Illness: The patient is a 37 M presents with 2 hours of chest pressure. Patient states he can sleep and woke up with substernal chest pressure rated an 8 out of 10. He had associated diaphoresis and nausea. His hands felt tingly at the time but that has resolved. He got up and went to the bathroom and felt like passing out. He has had episodes of shortness of breath, and he also felt lightheaded and dizzy when coming into the emergency department. Symptoms are worse with exertion. He is currently rating his discomfort a 1 or 2 out of 10. He had similar chest pain a year ago but without the diaphoresis, at which time he had an unremarkable workup. He has history of hypertension, hypercholesterolemia and family history of hypertension, but no history of personal history of diabetes, coronary artery disease, venous thromboembolism, and patient is not a smoker. He has been on verapamil for 5 days. Physical Examination: Vital signs: afebrile, hemodynamically stable, no hypoxia on room air General: well nourished, well developed, in no distress Skin: warm, diaphoresis, no rash, no pallor HEENT: normocephalic and atraumatic; PERRL, EOMI, moist mucous membranes Cardiovascular: Tachycardic rate and rhythm without murmurs, no peripheral edema, 2+ pulses all distal extremities Respiratory: No increased work of breathing, lungs are clear to auscultation bilaterally, no rales, rhonchi or wheezing Abdominal: Abdomen is soft, nontender with normoactive bowel sounds, no guarding or rebound, no masses MSK: Moves all extremities, no deformities, normal strength Neuro: Awake and alert, oriented ?4. No facial droop, sensation and motor function intact and symmetric Test Results: Abnormal Lab Results 03/02/18 03/02/18 03/02/18 03:52 03:52 03:52 WBC 6.3 RBC 5.14 Hgb 15.4 Hct 45.6 MCV 88.7 MCH 30.0 MCHC 33.8 RDW 12.9 RDW Differential 41.6 Plt Count 258 MPV 9.4 Immature Gran % (Auto) 0.200 Neut % (Auto) 50.8 Lymph % (Auto) 36.2 [place] % (Auto) 8.2 Eos % (Auto) 4.1 Baso % (Auto) 0.5 Absolute Neuts (auto) 3.2 Absolute Lymphs (auto) 2.29 Total Counted Not Reportable PT 12.7 INR 1.0 APTT 29.1 D-Dimer Quant (PE/DVT) 0.43 Sodium 143 Potassium 4.1 Chloride 109 H Carbon Dioxide 25.0 Anion Gap 9 BUN 13 Creatinine 1.06 Estim Creat Clear Calc 119.42 Est GFR (MDRD) Af Amer 102 Est GFR (MDRD) Non-Af 84 BUN/Creatinine Ratio 12.3 Glucose 91 Calcium 8.7 Troponin I < 0.015 TSH 5.38 H Clinical Impression(s) from Imaging Studies Chest X-Ray 03/02/18 04:08 IMPRESSION: No acute cardiopulmonary disease. Electronically Signed: Kwaku Pino MD at 4:31 EDT , Service support , Medications Given Discontinued Medications Aspirin (Aspirin, Baby) 324 mg PO X1 STA Stop: 03/02/18 04:09 Last Admin: 03/02/18 04:29 Dose: 324 mg Sodium Chloride () 1,000 mls @ 1,000 mls/hr IV .Q1H ONE Stop: 03/02/18 05:07 Last Admin: 03/02/18 04:29 Dose: 1,000 mls/hr Nitroglycerin (Nitrostat) 0.4 mg SUBLINGUAL Q5M LETICIA Stop: 03/02/18 04:26 Last Admin: 03/02/18 04:55 Dose: Not Given Admin: 03/02/18 04:41 Dose: 0.4 mg Admin: 03/02/18 04:31 Dose: 0.4 mg Emergency Department Course and Treatment: Patient presents with substernal chest pressure and episodic shortness of breath with tachycardia and diaphoresis. Chest pain workup was performed, including d-dimer to evaluate for possible PE, given the feeling of near syncope and tachycardia. Patient was given aspirin and nitro. Patient had resolution of his chest discomfort after 2 nitro. EKG showed a sinus rhythm without ischemia or ectopy. Troponin negative. No electrolyte derangements. On reevaluation, patient was no longer diaphoretic, skin was warm, pink and dry, and he was pain-free. Because of his risk factors of hypertension, hypercholesterolemia and obesity along with his c oncerning presentation with substernal chest discomfort and diaphoresis, he is moderate risk for 30-day MACE with a heart score of 4. Patient will be admitted observation status for further chest pain workup. He was discussed with the hospitalist for admission. Treatment Plan: [] Disposition: [] Impression: Acute chest pain, concern for ACS This note was generated with [employer] dictation software. It may contain incorrect words, spelling, and punctuation that were not noted in review of the chart prior to signing ED Disposition - Plan for ED Patient: Chief Complaint: Chest Pain Referrals: Leonel Garcia MD [Primary Care Provider] -
[2018-03-02 04:21] LABS: Absolute Lymphocyte Count 2.29 X10^3/ul (0.83-4.51); Absolute Neutrophil Count 3.2 X10^3/uL (2.0-7.7); Basophil# 0.03 X10^3/uL; Basophil% 0.5 % (0-1); Eosinophil# 0.26 X10^3/uL; Eosinophils% 4.1 % (0-5); Hematocrit 45.6 % (40-54); Hemoglobin 15.4 g/dl (13.0-16.5); Lymphocyte # 2.29 X10^3/ul (4.0); Lymphocyte % 36.2 % (19-41); Mean Corp Hgb Conc 33.8 g/gl (32-36); Mean Corpuscular Volume 88.7 fL (80-94); Mean Platelet Vol. 9.4 fl (6.2-12.0); Monocyte# 0.52 X10^3/uL; Monocyte% 8.2 % (0-10); Neutrophil # 3.21 X10^3/uL (2.7-7.7); Neutrophil % 50.8 % (47-70); Platelet Count 258 K/mm3 (150-450); RBC Distribution Width CV 12.9 % (11.6-14.6); RBC Distribution Width SD 41.6 fl (35.1-43.9); Red Blood Count 5.14 M/mm3 (4.6-6.2); White Blood Count 6.3 K/mm3 (4.4-11.0)
[2018-03-02 04:22] LABS: POSITIVE COUNT NO; POSITIVE DIFFERENTIAL NO; POSITIVE MORPHOLOGY NO
[2018-03-02 04:27] LABS: Prothrombin Time (Protime)PT. 12.7 SECONDS (11.7-14.9)
[2018-03-02 04:28] LABS: Partial Thromboplast Time 29.1 Seconds (24.1-36.2)
[2018-03-02] MEDS: Aspirin 81 MG TAB.CHEW 324 MG PO (04:29)
[2018-03-02] MEDS: 0.9% Normal Saline 1,000 ML 1000 ML IV (04:29)
[2018-03-02 04:37] LABS: Anion Gap 9 (5-15); BUN 13 mg/dL (7-18); BUN/Creat Ratio 12.3 RATIO (10-20); Calcium,Total 8.7 mg/dL (8.5-10.1); Chloride 109 mmol/L (98-107); Creatinine, Serum 1.06 mg/dL (0.70-1.30); EST Glomerular Filtration Rate 84 mL/min (>60); Est Glom Filt Rate - Afr Amer 102 mL/min (>60); Estimated Creatinine Clearance 119.42 ml/min; Glucose 91 mg/dL (74-106); Potassium 4.1 mmol/L (3.5-5.1); Sodium Level 143 mmol/L (136-145); Thyroid Stim Hormone (TSH) 5.38 uIU/mL (0.358-3.74)
[2018-03-02 04:47] LABS: D-Dimer Quantitative (DVT/PE) 0.43 FEU/ug/m (0.27-0.49)
--- NOTE | 2018-03-02 06:32 | NURSING ---
[id number] CP, CONCERN FOR ACS DR BAILEY
--- NOTE | 2018-03-02 07:31 | HP.PCM_ITS ---
Problem List (1) Chest pain Status: Acute (2) Dermatitis Status: Inactive History of Present Illness Date of Admission: 03/02/18 Chief Complaint: chest Pain The patient is a 37 year old M with a significant history of hypertension and obesity who presents with substernal progressively worsening sharp left-sided chest pain. His chest pain was originally located under his left breast but it moved to his right breast. It did not radiate to any place else. His chest pain located in the middle of the night. He woke up and he realized that he had chest pain. He is unsure whether the pain actually woke him up from sleep. Associated with symptoms is diaphoresis, nausea without vomiting; and a sensation of being about to pass out. His chest pain increased with shortness of breath. His chest pain resolved with nitroglycerin. Chest pain Admit to a monitored bed on PCU CXR independently reviewed confirms no acute cardiopulmonary process. EKG independently reviewed confirms inferior infarct unchanged from previous Received aspirin 324 mg at the ED ASA 81 mg p.o. daily SL NTG 0.4 mg prn as needed for chest pain Fasting lipids ordered. Serial cardiac enzymes ordered Stat EKG as needed for chest pain Treadmill stress test with nuclear imaging in the AM if the cardiac enzymes are negative TSH ordered at the ED returned elevated. Free T3 and free T4 ordered. Hypertension Blood pressure not within goal at admission. Home Diltiazem not ordered because patient is going to have stress test. As needed hydralazine ordered DVT prophylaxis Low risk ambulates. Past Medical History Medical History: Medical History (Last Updated 07/14/17 @ 13:18 by Sofya Dolan) torn pectoralis Allergies No Known Allergies Allergy (Verified 03/02/18 03:53) Home Medications: Ambulatory Orders Medication Instructions Recorded Verapamil HCl [Verapamil ER] 120 mg PO DAILY 03/02/18 Surgical History: Surgical History (Last Updated 07/29/17 @ 08:54 by Tesha Aiken) right pec reconstruction 07/16/17 History of arthroscopic surgery of elbow Z98.890 Lives: Alone Smoking Status: Never smoker Alcohol: Occasional - *Family History Maternal Family History: Family History (Last Reviewed 03/02/18 @ 07:34 by Phuc Chin MD) Mother Hypertension Father Hypertension Diabetes Other Heart disease Review of Systems Constitutional: Reports: Fatigue HEENT: Denies: Head Aches, Sinus Congestion, Sinus Drainage Cardiovascular: Reports: Light Headedness. Denies: Chest Pain, Palpitations Respiratory: Denies: Cough, Shortness of breath at rest, Sputum production Gastrointestinal: Reports: Nausea. Denies: Abdominal Pain, Vomiting Genitourinary: Denies: Dysuria Musculoskeletal: Denies: Joint Pain, Joint Tenderness Skin: Denies: Rash, Wounds Neurological: Denies: Numbness, Tingling, Focal weakness Psychiatric: Denies: Anxiety, Depression, Homicidal Ideations, Suicidal Ideati ons Hematologic/ Lymphatic: Denies: Easy Bruising, Easy Bleeding VTE Information - Inpt Only VTE Present on Admission: No VTE Mechan Device Prophylaxis: None VTE Pharm Prophylaxis ordered?: No Reason prophylaxis not ordered:: Treatment Not Indicated - low risk Patient Problems: Active and Suspected Problems (Last Updated 07/14/17 @ 13:18 by Sofya Dolan) Chest pain (Acute) - Physical Exam General: Alert, Oriented x3, Cooperative HEENT: Atraumatic, PERRLA, EOMI, Normocephalic Neck: Supple, No JVD, Negative Carotid Bruits Lungs: Clear to auscultation, Normal air movement Cardiovascular: Regular rate, No murmurs Abdomen: Bowel Sounds Present, Soft, Non Tender Extremities: No edema, Capillary Refill Less than 3 Seconds Skin: No rashes, No breakdown Musculoskeletal: No Tenderness to Palpation of Joints or Extremities Neurological: Cranial nerves II-XII grossly intact Psych/Mental Status: Normal Affect, Appropriate Vital Signs Temp Pulse Resp BP Pulse Ox 98.3 F 84 20 H 155/100 H 97 03/02/18 06:59 03/02/18 07:19 03/02/18 06:59 03/02/18 06:59 03/02/18 07:04 Oxygen Delivery Method Room Air Weight: 133.1 kg Body Mass Index (BMI) 35.7 Laboratory Tests Past 24 Hrs 03/02/18 03/02/18 03/02/18 03:52 03:52 03:52 WBC 6.3 RBC 5.14 Hgb 15.4 Hct 45.6 MCV 88.7 MCH 30.0 MCHC 33.8 RDW 12.9 RDW Differential 41.6 Plt Count 258 MPV 9.4 Immature Gran % (Auto) 0.200 Neut % (Auto) 50.8 Lymph % (Auto) 36.2 [place] % (Auto) 8.2 Eos % (Auto) 4.1 Baso % (Auto) 0.5 Absolute Neuts (auto) 3.2 Absolute Lymphs (auto) 2.29 Total Counted Not Reportable PT 12.7 INR 1.0 APTT 29.1 D-Dimer Quant (PE/DVT) 0.43 Sodium 143 Potassium 4.1 Chloride 109 H Carbon Dioxide 25.0 Anion Gap 9 BUN 13 Creatinine 1.06 Estim Creat Clear Calc 119.42 Est GFR (MDRD) Af Amer 102 Est GFR (MDRD) Non-Af 84 BUN/Creatinine Ratio 12.3 Glucose 91 Calcium 8.7 Troponin I < 0.015 TSH 5.38 H Free T4 Free T3 pg/dL 03/02/18 03/02/18 07:10 07:10 WBC RBC Hgb Hct MCV MCH MCHC RDW RDW Differential Plt Count MPV Immature Gran % (Auto) Neut % (Auto) Lymph % (Auto) [place] % (Auto) Eos % (Auto) Baso % (Auto) Absolute Neuts (auto) Absolute Lymphs (auto) Total Counted PT INR APTT D-Dimer Quant (PE/DVT) Sodium Potassium Chloride Carbon Dioxide Anion Gap BUN Creatinine Estim Creat Clear Calc Est GFR (MDRD) Af Amer Est GFR (MDRD) Non-Af BUN/Creatinine Ratio Glucose Calcium Troponin I Pending TSH Free T4 Pending Free T3 pg/dL Pending Assessment/Plan All Active Problems (Last Updated 07/14/17 @ 13:18 by Sofya Dolan) Chest pain (Acute) The patient is a 37 year old M with a significant history of hypertension and obesity who presents with substernal progressively worsening sharp left-sided chest pain relieved with nitroglycerin. Chest pain Admit to a monitored bed on PCU CXR independently reviewed confirms no acute cardiopulmonary process. EKG independently reviewed confirms inferior infarct unchanged from previous Received aspirin 324 mg at the ED ASA 81 mg p.o. daily SL NTG 0.4 mg prn as needed for chest pain Fasting lipids ordered. Serial cardiac enzymes ordered Stat EKG as needed for chest pain Treadmill stress test with nuclear imaging in the AM if the cardiac enzymes are negative TSH ordered at the ED returned elevated. Free T3 and free T4 ordered. Hypertension Blood pressure not within goal at admission. Home Diltiazem not ordered because patient is going to have stress test. As needed hydralazine ordered DVT prophylaxis Low risk ambulates. Code Visit OBSV E&M: [id number] Initial observation care L3
[2018-03-02 07:40] LABS: Free T3 3.3 pg/mL (2.18-3.98); T4 Free Direct 0.84 ng/dL (0.76-1.46)
[2018-03-02 07:51] LABS: Cholesterol 198 mg/dL (200); High Density Lipoprotein 31 mg/dL; Triglycerides 160 mg/dL; Very Low Density Lipoprotein 32 mg/dL (5-40)
--- NOTE | 2018-03-02 09:07 | NURSING ---
To stress test via bed
[2018-03-02] MEDS: Atorvastatin Calcium 80 MG Tablet PO (11:10)
--- NOTE | 2018-03-02 12:33 | STRESSREP_ITS ---
Stress Test Report Exercise myocardial perfusion stress test. Next 37-year-old man with a history of chest pain. Stress protocol: Resting EKG demonstrates normal sinus rhythm with a rate of 71 bpm normal intervals and noted resting blood pressure 138/90 mmHg. The patient exercised according to regular Jatin protocol for total duration of 10 minutes completing 1 minute into stage IV of the Jatin protocol the maximum heart rate attained was 184 bpm which was 99% of the maximum predicted heart rate the maximum workload was 11.4 metabolic equivalents. At rest there were no ST or T wave changes noted to suggest ischemia at peak exercise upsloping ST changes only were noted with no meet the criteria for ischemia. No clinical angina was noted. No ar rhythmias were noted. The resting blood pressure was noted to be 138/90 mmHg with a peak blood pressure 160/90 mmHg. Rate pressure product was 27,300. Myocardial perfusion protocol. 14.9 mCi of technetium 99m sestamibi was injected at rest. Patient exercised according to Jatin protocol for 10 minutes attaining 11.7 metabolic equivalents. At peak exercise 44.7 mCi of technetium 99m sestamibi was injected stress images were obtained stress and rest images were reconstructed and compared in the short axis vertical long and horizontal long axis. Gated images were also obtained. Perfusion SPECT analysis: Review of the stress images demonstrate normal uptake of tracer noted in all areas of the myocardium on the stress images the resting images demonstrate a similar patent. No areas of reversibility or perfusion defects are noted to suggest ischemia or infarct. Gated SPECT analysis: The gated ejection fraction is noted to be 61%. Conclusion: Normal exercise myocardial perfusion stress test at a high workload. Preserved ejection fraction.
--- NOTE | 2018-03-02 13:23 | DCINST_ITS ---
- Discharge Diagnoses Current Active Problems: Current Active and Chronic Problems (Last Updated 07/14/17 @ 13:18 by Sofya Dolan) Chest pain (Acute) You will use the following diet at home:: No restrictions Your food should be the consistency of: Regular Your liquids should be the consistency of: Regular/Thin Discharge Activity: Return to Normal Activity Instructions: ED Chest Pain NonCardiac Allergies/Adverse Reactions: Allergies No Known Allergies Allergy (Verified 03/02/18 03:53) Medications to take at Discharge Verapamil HCl [Verapamil ER] 120 mg PO DAILY 03/02/18 Primary Care Physician: Leonel Garcia MD [Primary Care Provider] - Within 2 Weeks Test Results: Test results from this visit will be discussed in further detail at your follow- up appointment, if applicable.
--- NOTE | 2018-03-02 13:24 | PCM.DC.SUM ---
Discharge Date and Diagnosis - Problem List Patient Problems: Active and Suspected Problems (Last Updated 07/14/17 @ 13:18 by Sofya Dolan) Chest pain (Acute) Date of Admission: 03/02/18 Date of Discharge: 03/02/18 - Primary Discharge Diagnosis Active and Suspected Problems (Last Updated 07/14/17 @ 13:18 by Sofya Dolan) Chest pain (Acute) Hospital Course and Treatment Imaging Results: 03/02/18 07:25 Nuclear Stress Test - Treadmil [NM] Routine Clinical Impression(s) from Imaging Studies Chest X-Ray 03/02/18 04:08 IMPRESSION: No acute cardiopulmonary disease. Electronically Signed: Kwaku Pino MD at 4:31 EDT , Service support , Operations: None Procedures: None Summary of Care Provided: The patient is a 37 year old M presents chest pain. Chest pain was midsternal across his chest. Patient presented to the emergency room and underwent a workup which was unremarkable. Patient underwent stress test today that was unremarkable. Patient stated that the day before he was not feeling well and did not eat much. Patient's chest pain is certainly not cardiac and may be more GI related such as esophageal spasm. Discussed with the patient that patient said he has had some low-grade events before but never to this severity. Total that given the infrequent nature of this and the fact that he does not have any other obvious symptoms of reflux I would not recommend PPI therapy at this time away for recur more frequently. [] Patient Problems: Active and Suspected Problems (Last Updated 07/14/17 @ 13:18 by Sofya Dolan) Chest pain (Acute) - Physical Exam General: Alert, No apparent distress, - - Up in chair HEENT: Atraumatic, Normocephalic Oral: Moist Mucosa, No Gingival or Mucosal Lesions/ Ulcerations Psych/Mental Status: Normal Affect, Appropriate Vital Signs Temp Pulse Resp BP Pulse Ox 37.1 C 93 20 H 147/97 H 95 03/02/18 11:10 03/02/18 11:24 03/02/18 11:10 03/02/18 11:10 03/02/18 11:10 Oxygen Delivery Method Room Air Weight: 133.1 kg Body Mass Index (BMI) 35.7 Intake and Output for Last 24 Hours 02/28/18 03/01/18 03/02/18 23:59 23:59 23:59 Intake Total 480 / 480 Balance 480 / 480 Laboratory Tests Past 24 Hrs 03/02/18 03/02/18 03/02/18 03:52 03:52 03:52 WBC 6.3 RBC 5.14 Hgb 15.4 Hct 45.6 MCV 88.7 MCH 30.0 MCHC 33.8 RDW 12.9 RDW Differential 41.6 Plt Count 258 MPV 9.4 Immature Gran % (Auto) 0.200 Neut % (Auto) 50.8 Lymph % (Auto) 36.2 Imperial % (Auto) 8.2 Eos % (Auto) 4.1 Baso % (Auto) 0.5 Absolute Neuts (auto) 3.2 Absolute Lymphs (auto) 2.29 Total Counted Not Reportable PT 12.7 INR 1.0 APTT 29.1 D-Dimer Quant (PE/DVT) 0.43 Sodium 143 Potassium 4.1 Chloride 109 H Carbon Dioxide 25.0 Anion Gap 9 BUN 13 Creatinine 1.06 Estim Creat Clear Calc 119.42 Est GFR (MDRD) Af Amer 102 Est GFR (MDRD) Non-Af 84 BUN/Creatinine Ratio 12.3 Glucose 91 Calcium 8.7 Troponin I < 0.015 Triglycerides Cholesterol LDL Cholesterol VLDL Cholesterol HDL Cholesterol TSH 5.38 H Free T4 Free T3 pg/dL 03/02/18 03/02/18 03/02/18 07:10 07:10 07:10 WBC RBC Hgb Hct MCV MCH MCHC RDW RDW Differential Plt Count MPV Immature Gran % (Auto) Neut % (Auto) Lymph % (Auto) Imperial % (Auto) Eos % (Auto) Baso % (Auto) Absolute Neuts (auto) Absolute Lymphs (auto) Total Counted PT INR APTT D-Dimer Quant (PE/DVT) Sodium Potassium Chloride Carbon Dioxide Anion Gap BUN Creatinine Estim Creat Clear Calc Est GFR (MDRD) Af Amer Est GFR (MDRD) Non-Af BUN/Creatinine Ratio Glucose Calcium Troponin I < 0.015 Triglycerides 160 Cholesterol 198 LDL Cholesterol 135 H VLDL Cholesterol 32 HDL Cholesterol 31 L TSH Free T4 0.84 Free T3 pg/dL 3.3 Discharge Diet: No Restrictions Discharge Activity: Return to Normal Activity Call your doctor if you observe: Fever of 101 or Higher, Shortness of breath, Chest pain Home Medications: Medications to take at Discharge Verapamil HCl [Verapamil ER] 120 mg PO DAILY 03/02/18 Primary Care Physician: Leonel Garcia MD [Primary Care Provider] - Within 2 Weeks Patient Instructions: ED Chest Pain NonCardiac Disposition: Home Minutes spent on discharge:: 25 Patient Condition:: Good Medical Necessity - Tobacco Use Smoking Status: Never smoker Tobacco Use: Non-smoker Meaningful Use Info Meaningful Use Diagnoses (Choose all that apply): None applicable Code Visit OBSV E&M: 88985 Observation care discharge
== END 2018-03-02 13:47 | disposition home or self-care (01) ==
LOC: ED 04:10 → ICU 06:45
PROVIDERS: Admitting Provider Hospitalist; Emergency Provider Emergency Medicine; Family Provider Family Medicine; PCP Family Medicine
DX: R07.89 Other chest pain (principal); R06.02 Shortness of breath; R11.0 Nausea; I10 Essential (primary) hypertension; E78.00 Pure hypercholesterolemia, unspecified; Z79.899 Other long term (current) drug therapy; E66.9 Obesity, unspecified; Z68.35 Body mass index [BMI] 35.0-35.9, adult; Z71.3 Dietary counseling and surveillance
CPT/HCPCS: 71046; 78452; 80048; 80061; 84439; 84443; 84481; 84484; 85025; 85379; 85610; 85730; 93005; 93017; 96360; 96361; 99218; 99285; A9500; A4216; G0378

== ENCOUNTER 2018-08-22 11:24 | Emergency (ER) | payer OTHER, SELFPAY ==
[2018-08-22 11:26] VITALS: BP 144/90; PULSE 105; RESP 17; TEMP 35.9; O2SAT 96; BMI 35.4
[2018-08-22 12:37] VITALS: BP 136/93; PULSE 88; RESP 17; O2SAT 95
[2018-08-22] MEDS: Ketorolac 30 MG/ML Syringe IV (13:08)
[2018-08-22] MEDS: proCHLORPERazine 10 MG/2 ML Vial IV (13:08)
[2018-08-22] MEDS: 0.9% Normal Saline 1,000 ML 999 ML IV (13:08)
[2018-08-22] MEDS: DiphenhydrAMINE 50 MG/ML Syringe 25 MG IV (13:08)
[2018-08-22 13:25] LABS: Absolute Lymphocyte Count 1.52 X10^3/ul (0.83-4.51); Basophil# 0.04 X10^3/uL; Basophil% 0.8 % (0-1); Eosinophil# 0.34 X10^3/uL; Eosinophils% 6.4 % (0-5); Hematocrit 43.4 % (40-54); Hemoglobin 15.2 g/dl (13.0-16.5); Lymphocyte # 1.52 X10^3/ul (4.0); Lymphocyte % 28.7 % (19-41); Mean Corpuscular Hgb 30.3 pg (27.0-32.0); Mean Corpuscular Volume 86.6 fL (80-94); Mean Platelet Vol. 9.7 fl (6.2-12.0); Monocyte# 0.37 X10^3/uL; Neutrophil # 3.02 X10^3/uL (2.7-7.7); Neutrophil % 56.9 % (47-70); Platelet Count 213 K/mm3 (150-450); RBC Distribution Width SD 41.3 fl (35.1-43.9); Red Blood Count 5.01 M/mm3 (4.6-6.2); White Blood Count 5.3 K/mm3 (4.4-11.0)
[2018-08-22 13:27] LABS: POSITIVE COUNT NO; POSITIVE DIFFERENTIAL NO; POSITIVE MORPHOLOGY NO
[2018-08-22 13:36] LABS: Anion Gap 3 (5-15); BUN 7 mg/dL (7-18); BUN/Creat Ratio 7.1 RATIO (10-20); Calcium,Total 8.5 mg/dL (8.5-10.1); Chloride 109 mmol/L (98-107); Creatinine, Serum 0.98 mg/dL (0.70-1.30); EST Glomerular Filtration Rate 92 mL/min (>60); Est Glom Filt Rate - Afr Amer 111 mL/min (>60); Estimated Creatinine Clearance 129.17 ml/min; Glucose 89 mg/dL (74-106); Potassium 4.2 mmol/L (3.5-5.1); Sodium Level 142 mmol/L (136-145)
--- NOTE | 2018-08-22 13:51 | ED.VISSUMM ---
- ER Visit Summary Date of Service: 08/22/18 Chief Complaint: Migraine headache and syncope History of Present Illness: The patient is a 37 M who presents with a migraine headache that began yesterday. Patient states that this feels somewhat similar to prior migraine headaches. Patient admits to some photophobia. Patient states pain is worse over the right occipital area. Patient states that he stood up quickly today and had a syncopal episode. Patient admits to nausea but denies any vomiting. Patient admits to denies any fevers or chills. Physical Examination: Vital signs are stable. Patient is afebrile. Patient is in no acute distress. Oral mucosa is pink and moist. Neck is supple. Trachea is midline. There is no JVD noted. Heart was regular rate and rhythm. Lungs are clear and equal bilateral. Abdomen is soft. Bowel sounds are normal. There is no tenderness. There is no guarding noted. Skin is warm dry. Cranial nerves II through XII are intact. There are no focal motor or sensory deficits noted. The remaining physical exam is within normal limits. Emergency Department Course and Treatment: Patient was given Compazine, Benadryl, and Toradol IV here. Patient was given IV fluids. CBC, basic metabolic profile, and troponin were obtained and were normal. Patient felt better on reevaluation. Patient was instructed to follow-up with his primary care physician in 5-7 days. Patient understood and was agreeable with the plan. All questions were answered. Disposition: Discharge home Impression: 1. Migraine headache 2. Syncopal episode This note was generated with [employer] dictation software. It may contain incorrect words, spelling, and punctuation that were not noted in review of the chart prior to signing ED Disposition - Plan for ED Patient: Disposition: Home or Assisted Living Diagnosis: Migraine headache, Syncope Instructions: ED Headache Migraine, ED Fainting Unkn Cause Referrals: Leonel Garcia MD [Primary Care Provider] - 3-5 Days
[2018-08-22 13:57] VITALS: BP 138/88; PULSE 76; RESP 16; O2SAT 97
== END 2018-08-22 14:00 | disposition home or self-care (01) ==
PROVIDERS: Emergency Provider Emergency Medicine; Family Provider Family Medicine; PCP Family Medicine
DX: G43.909 Migraine, unspecified, not intractable, without status migrainosus (principal); R55 Syncope and collapse
CPT/HCPCS: 80048; 84484; 85025; 96361; 96374; 96375; 99283; J7030